=== PATIENT | female | born 1975 | race Caucasian/White ===

== ENCOUNTER → 2020-03-27 | Outpatient (CLI) | payer OTHER ==
--- NOTE | 2020-03-27 14:07 | Diagnostic Imaging Report ---
INDICATION: Bilateral breast pain. COMPARISON: No prior mammograms are available for comparison. TECHNIQUE: 2D and 3D bilateral diagnostic mammography was performed with CAD. FINDINGS: Bilateral subpectoral breast implants are noted. There is slight implant shell contracture on the left. Intracapsular rupture cannot be entirely excluded. The contour of the right implant is smooth. No extracapsular rupture is identified. The breast parenchyma does show scattered fibroglandular densities. No dominant mass or malignant appearing microcalcifications are seen. The axillae are unremarkable. IMPRESSION: 1. No mammographic features suspicious for malignancy are identified. Sonographic interrogation of the areas of pain in the bilateral breasts is recommended and will be performed today. 2. Questionable mild contracture of the left implant which can be seen with intracapsular rupture. MRI of the bilateral breasts could be performed for further evaluation if clinically indicated. ACR BI-RADS Category 0: Incomplete. (Needs additional imaging evaluation). Result letter will be mailed to the patient. Note: At least 10% of breast cancer is not imaged by mammography. Dictated by: Dictated on workstation # [id number]
--- NOTE | 2020-03-27 14:56 | Diagnostic Imaging Report ---
INDICATION: Pain involving the bilateral breasts. COMPARISON: Correlation is made with the prior diagnostic mammogram from earlier this same day. FINDINGS: Sonographic interrogation of the areas of pain in the bilateral breasts was performed. No sonographic abnormality is seen. No solid or cystic masses are detected. No fluid collections are seen. IMPRESSION: No sonographic abnormality is detected. ACR BI-RADS Category 1: Negative. Dictated by: Dictated on workstation # [id number]
== END ==
LOC: RAD 13:45
PROVIDERS: ATTEND Nurse Practitioner Family
DX: T85.44XA Capsular contracture of breast implant, initial encounter (principal); N64.4 Mastodynia
CPT/HCPCS: 76642; 77066; G0279; 77062